=== PATIENT | male | born 1975 | race Caucasian/White ===

== ENCOUNTER 2020-04-16 12:24 | Emergency (ER) | payer OTHER ==
[2020-04-16 12:45] VITALS: BP 146/57; PULSE 86; RESP 18; TEMP 98.2
--- NOTE | 2020-04-16 12:56 | ED ---
General Adult HPI - General Chief complaint: Extremity Injury, Upper Stated complaint: L Hand Injury Time Seen by Provider: 04/16/20 12:40 Source: patient, RN notes reviewed, old records reviewed Mode of arrival: ambulatory Limitations: no limitations - History of Present Illness Initial comments: This is a 44-year-old male who comes in complaining of left fifth digit pain. Patient states he was carrying a sensation of safe caught between the safe in the wall. Patient states he can flex the but he has a difficult time fully extending the finger. Patient states the PIP joint is where it's very tender. Patient denies any other injury at this time. - Related Data Previous Rx's Medication Instructions Recorded Amoxicillin 500 mg PO Q8H #30 capsule 12/25/14 traMADol HCl [Ultram] 50 - 100 mg PO Q6H PRN #15 tab 12/25/14 Allergies Allergy/AdvReac Type Severity Reaction Status Date / Time No Known Allergies Allergy Verified 04/16/20 12:45 Review of Systems ROS Statement: Those systems with pertinent positive or pertinent negative responses have been documented in the HPI. ROS Other: All systems not noted in ROS Statement are negative. Past Medical History Past Medical History: No Reported History History of Any Multi-Drug Resistant Organisms: None Reported Past Surgical History: No Surgical Hx Reported Past Psychological History: No Psychological Hx Reported Smoking Status: Current every day smoker Past Alcohol Use History: None Reported Past Drug Use History: Marijuana General Exam - General Exam Comments Initial Comments: GENERAL Patient is well-developed and well-nourished. Patient is in mild distress. EYES Patient's pupils are equal and round. Extraocular motion is intact SKIN Unremarkable NEURO The patient is alert and oriented 3 PYSCH Patient has normal interpersonal interactions. MUSCULOSKELETAL Patient's PIP joint of the fifth left digit is very painful to touch and is somewhat swollen. Patient cannot fully extend the finger but he can flex it a little bit at each joint. Limitations: no limitations Course Vital Signs 04/16/20 12:41 Temperature 98.2 F Pulse Rate 86 Respiratory 18 Rate Blood Pressure 146/57 O2 Sat by Pulse 99 Oximetry Medical Decision Making - Medical Decision Making x-ray shows no acute fracture. Patient is having trouble extending the finger fully so we will be placed in a splint and full extension Disposition Clinical Impression: Strain of extensor muscle, fascia and tendon of finger, unspecified finger at forearm level, initial encounter Disposition: HOME SELF-CARE Condition: Good Is patient prescribed a controlled substance at d/c from ED?: No Referrals: Medardo Huang DO [Medical Doctor] - 1-2 days Time of Disposition: 13:25
--- NOTE | 2020-04-16 13:27 | XR ---
EXAMINATION TYPE: XR finger LT DATE OF EXAM: 04/16/2020 COMPARISON: NONE HISTORY: Pain TECHNIQUE: Three views are submitted. FINDINGS: The osseous structures are intact. The joint spaces are preserved and there is no acute fracture or dislocation. There is a chronic deformity head of the fifth metacarpal compatible with remote fractu re. There is a radiopaque density overlying the soft tissues in the subcutaneous region along the mar gin of the fifth metacarpal head which could represent a small foreign body. IMPRESSION: 1. No definite acute fracture or dislocation if symptoms persist, follow-up study in 7 to 10 days wo uld be suggested. 2. Chronic fracture fifth metacarpal with possible metallic foreign body adjacent to the head of the fifth metacarpal.
== END 2020-04-16 13:40 | disposition home or self-care (01) ==
LOC: EC 12:24
DX: S66.317A Strain of extensor muscle, fascia and tendon of left little finger at wrist and hand level, initial encounter (principal); W20.8XXA Other cause of strike by thrown, projected or falling object, initial encounter; Y92.009 Unspecified place in unspecified non-institutional (private) residence as the place of occurrence of the external cause
CPT/HCPCS: 99284

== ENCOUNTER → 2020-05-27 | Outpatient (CLI) | payer OTHER | END | disposition home or self-care (01) | LOC: LABWHC1 12:23 | PROVIDERS: ATTEND Orthopaedic Surgery | DX: E55.9 Vitamin D deficiency, unspecified (principal) | CPT/HCPCS: 36415; 82306 ==

== ENCOUNTER 2020-09-28 05:47 | Emergency (ER) | payer OTHER ==
[2020-09-28 05:56] VITALS: BP 137/86; PULSE 74; RESP 16; TEMP 98.4
[2020-09-28] MEDS ORDERED: LIDOCAINE 1% INJ 10MG/ML (20 ML MDV) SQ STA (06:41)
--- NOTE | 2020-09-28 06:45 | ED ---
General Adult HPI - General Chief complaint: Extremity Injury, Upper Stated complaint: [facility] Extremity Injury,Right Hand Time Seen by Provider: 09/28/20 06:20 Source: patient, RN notes reviewed Mode of arrival: ambulatory Limitations: no limitations - History of Present Illness Initial comments: Patient 45-year-old male presented to the emergency room today with a chief complaint of injury to left hand. He does admit that he was at work when a piece of metal fell on the back of the left hand. Patient does admit to a laceration. He states he put bandage on and was able to go back to work symptoms increased swelling was advised come here to the emergency room. Patient states tetanus is up-to-date. He denies any other complaints or any other symptoms. - Related Data Previous Rx's Medication Instructions Recorded Amoxicillin 500 mg PO Q8H #30 capsule 12/25/14 traMADol HCl [Ultram] 50 - 100 mg PO Q6H PRN #15 tab 12/25/14 Amoxic-Pot Clav 875-125Mg 1 tab PO Q12HR 1 Days #14 tab 09/28/20 [Augmentin 875-125] Allergies Allergy/AdvReac Type Severity Reaction Status Date / Time acetaminophen [From Lortab] AdvReac Hallucinati Verified 09/28/20 05:52 ons hydrocodone [From Lortab] AdvReac Hallucinati Verified 09/28/20 05:52 ons Review of Systems ROS Statement: Those systems with pertinent positive or pertinent negative responses have been documented in the HPI. ROS Other: All systems not noted in ROS Statement are negative. Past Medical History Past Medical History: No Reported History History of Any Multi-Drug Resistant Organisms: None Reported Past Surgical History: No Surgical Hx Reported Past Psychological History: No Psychological Hx Reported Smoking Status: Current every day smoker Past Alcohol Use History: None Reported Past Drug Use History: Marijuana General Exam - General Exam Comments Initial Comments: General: The patient is awake and alert, in no distress, and does not appear acutely ill. Neck: The neck is supple, there is no tenderness or JVD. Cardiovascular: There is a regular rate and rhythm. No murmur, rub or gallop is appreciated. Respiratory: Lungs are clear to auscultation, respirations are non-labored, breath sounds are equal. No wheezes, stridor, rales, or rhonchi. Musculoskeletal: Patient has full range of motion of his hand. Strength is 5/5 in all areas. Mild tenderness to the back of the left hand over the laceration site. There is mild swelling. No active bleeding. Laceration measures approximately a centimeter Neurological: A&O x 3. CN II-XII intact, There are no obvious motor or sensory deficits. Coordination appears grossly intact. Speech is normal. Skin: 1 cm laceration to the back of the left hand. Psychiatric: Normal mood and affect. Limitations: no limitations Course Vital Signs 09/28/20 05:53 Temperature 98.4 F Pulse Rate 74 Respiratory 16 Rate Blood Pressure 137/86 O2 Sat by Pulse 100 Oximetry Procedures - Procedures Initial comment: 1 cm linear laceration in the back of her left hand. The skin was anesthetized with 1% lidocaine. The laceration was then cleansed with Betadine and irrigated with normal saline. The wound was inspected, and there was no evidence of injury to deep structures. No foreign body was noted in the wound. A total of 2 skin sutures were placed utilizing 4-0 nylon. Medical Decision Making - Medical Decision Making X-ray was reviewed and shows no acute fracture dislocation. There is metallic foreign body that is visualized is not close to the laceration site tenderness over the back of the left hand over the third metacarpal area. The laceration was cleaned) emergency room he tolerated well. Tetanus is up-to-date. Patient will be started on antibiotics cover for infection from puncture type wound. Advised to follow with employee health return here to emergency room for any other concerns and have sutures removed in 7-10 days. Disposition Clinical Impression: Hand laceration Disposition: HOME SELF-CARE Condition: Good Additional Instructions: Please return to the emergency room in 7-10 days to have sutures removed. Please watch for any signs of infection which may include increased pain, swelling, redness, fever or chills. Please return to emergency room for any signs of infection do occur. Please use clean soap and water over the area to prevent scabbing over your stitches. Please leave wound covered for the first 24-48 hours and then leave wound open to air. Please return to the emergency room for any other concerns. Prescriptions: Amoxic-Pot Clav 875-125Mg [Augmentin 875-125] 1 tab PO Q12HR 1 Days #14 tab Is patient prescribed a controlled substance at d/c from ED?: No Referrals: None,Stated [Primary Care Provider] - 1-2 days Time of Disposition: 07:07
--- NOTE | 2020-09-28 06:59 | XR ---
EXAM: XR Left Hand Complete, 3 or More Views CLINICAL HISTORY: Reason: left hand injury TECHNIQUE: Frontal, lateral and oblique views of the left hand. COMPARISON: No relevant prior studies available. FINDINGS: Bones/joints: There is no evidence of acute fracture. Mild deformity of the distal fifth metacarpal may be associated with old, healed boxer's fracture. No subluxation. Joint spaces are preserved. Soft tissues: Mild soft tissue swelling seen along the dorsum of the hand. There is a 5 mm thin metallic density within the thenar space, possibly a broken needle tip. Additional 2 mm metallic density seen adjacent to the distal fifth metacarpal. IMPRESSION: No evidence of acute fracture or dislocation. Possible old healed distal fifth metacarpal fracture. 2 mm metallic radiopaque foreign body adjacent to the head of fifth metacarpal and 5 mm thin metallic density within the thenar space. Please correlate for injuries at these sites.
== END 2020-09-28 07:15 | disposition home or self-care (01) ==
LOC: EC 05:47
DX: S61.412A Laceration without foreign body of left hand, initial encounter (principal); F17.200 Nicotine dependence, unspecified, uncomplicated; Z88.5 Allergy status to narcotic agent; W20.8XXA Other cause of strike by thrown, projected or falling object, initial encounter; Y93.89 Activity, other specified; Y92.69 Other specified industrial and construction area as the place of occurrence of the external cause; Y99.0 Civilian activity done for income or pay
CPT/HCPCS: 73130; 12001; 99283; J2001

== ENCOUNTER 2020-12-20 13:01 | Emergency (ER) | payer OTHER ==
[2020-12-20 13:05] VITALS: RESP 18
[2020-12-20] MEDS ORDERED: LIDOCAINE VISCOUS 2% 15 ML CUP MUCOUS MEM STA (13:38)
[2020-12-20] MEDS ORDERED: PENICILLIN VK 500MG STARTER 4 TAB BTL PO STA (13:38)
--- NOTE | 2020-12-20 13:58 | ED ---
General Adult HPI - General Chief complaint: Dental/Oral Stated complaint: Dental Pain Time Seen by Provider: 12/20/20 13:15 Source: patient Mode of arrival: ambulatory Limitations: no limitations - History of Present Illness Initial comments: 45-year-old male presents for dental pain. Patient reports that he started to have left lower mouth dental pain yesterday. States he went to go get Orajel and it burned his tongue. It hurts all around his tongue. Patient denies any swelling of his lips or throat. Denies any swelling of the tongue.Patient has no other complaints at this time including shortness of breath, chest pain, abdominal pain, nausea or vomiting, headache, or visual changes. - Related Data Previous Rx's Medication Instructions Recorded Amoxicillin 500 mg PO Q8H #30 capsule 12/25/14 traMADol HCl [Ultram] 50 - 100 mg PO Q6H PRN #15 tab 12/25/14 Amoxic-Pot Clav 875-125Mg 1 tab PO Q12HR 1 Days #14 tab 09/28/20 [Augmentin 875-125] Penicillin V Potassium [Pen Vee K] 500 mg PO Q6H 10 Days #40 tablet 12/20/20 Allergies Allergy/AdvReac Type Severity Reaction Status Date / Time acetaminophen [From Lortab] AdvReac Hallucinati Verified 12/20/20 13:02 ons hydrocodone [From Lortab] AdvReac Hallucinati Verified 12/20/20 13:02 ons Review of Systems ROS Statement: Those systems with pertinent positive or pertinent negative responses have been documented in the HPI. ROS Other: All systems not noted in ROS Statement are negative. Past Medical History Past Medical History: No Reported History History of Any Multi-Drug Resistant Organisms: None Reported Past Surgical History: No Surgical Hx Reported Past Psychological History: No Psychological Hx Reported Smoking Status: Current every day smoker Past Alcohol Use History: None Reported Past Drug Use History: Marijuana General Exam Limitations: no limitations General appearance: alert, in no apparent distress Head exam: Present: atraumatic, normocephalic, normal inspection Eye exam: Present: normal appearance, PERRL, EOMI. Absent: scleral icterus, conjunctival injection, periorbital swelling ENT exam: Present: normal exam, mucous membranes moist. Absent: normal oropharynx (Patient has very poor dentition. Tenderness to left lower molar. No abscess evident. Patient does have irritation noted to the lateral aspect of the tongue bilaterally. There is no edema.) Neck exam: Present: normal inspection. Absent: tenderness, meningismus, l ymphadenopathy Respiratory exam: Present: normal lung sounds bilaterally. Absent: respiratory distress, wheezes, rales, rhonchi, stridor Cardiovascular Exam: Present: regular rate, normal rhythm, normal heart sounds. Absent: systolic murmur, diastolic murmur, rubs, gallop, clicks Course Vital Signs 12/20/20 13:02 Temperature 97.4 F L Pulse Rate 55 L Respiratory 18 Rate Blood Pressure 151/95 O2 Sat by Pulse 99 Oximetry Medical Decision Making - Medical Decision Making Patient was given penicillin. Will give him some viscous lidocaine here. We recommend he follows up with his doctor. If he has any worsening symptoms he will return to the emergency room. Disposition Clinical Impression: Pain, dental Disposition: HOME SELF-CARE Condition: Good Instructions (If sedation given, give patient instructions): Toothache (ED) Additional Instructions: Please take antibiotic as directed. Please follow-up with dentist. Take Motrin and Tylenol for pain. Return if you've any worsening symptoms. [facility] [address] [id number] (existing clients only) New clients: [phone] 1st consult: $50 (includes XRs) Usually 30% less than private dentist for visits after. [employer] Have to pay $50 for Xrays and rest is covered [phone] Prescriptions: Penicillin V Potassium [Pen Vee K] 500 mg PO Q6H 10 Days #40 tablet Is patient prescribed a controlled substance at d/c from ED?: No Referrals: Paolo Ruffin DO [REFERRING] - 1-2 days Time of Disposition: 13:57
[2020-12-20 14:04] VITALS: BP 129/86; PULSE 87; TEMP 98.4
== END 2020-12-20 14:02 | disposition home or self-care (01) ==
LOC: EC 13:01
DX: F17.200 Nicotine dependence, unspecified, uncomplicated (principal); K08.89 Other specified disorders of teeth and supporting structures
CPT/HCPCS: 99283

== ENCOUNTER 2021-03-21 22:16 | Emergency (ER) | payer OTHER ==
[2021-03-21 22:24] VITALS: BP 145/83; PULSE 62; RESP 20; TEMP 97.8
[2021-03-21] MEDS ORDERED: methylPREDNISolone SOD SUCCI 125 MG/2 ML VIAL IM ONE (23:01)
--- NOTE | 2021-03-21 23:28 | ED ---
General Adult HPI - General Chief complaint: Eye Problems Stated complaint: foreign body in right eye Time Seen by Provider: 03/21/21 22:47 Source: patient Mode of arrival: ambulatory Limitations: no limitations - History of Present Illness Initial comments: patient is a 45-year-old male presenting to the emergency department with a bee sting to the right upper eyelid. Patient states this happened approximately 3 hours prior to arrival. He states he does have an ALLERGY to bees. He did take a total of 100 mg of Benadryl prior to arrival. He states she's been using ice to the area and was concerned that the stinger may be still in his eye. He denies any trouble breathing, no chest pain, no itchiness, no hives. Denies any nausea or vomiting. He denies ever having an anaphylactic reaction to a bee sting. He has no further complaints at this time. His vitals are stable upon arrival. - Related Data Home Medications Medication Instructions Recorded Confirmed diphenhydrAMINE HCL [Benadryl] 100 mg PO ONCE PRN 03/21/21 03/21/21 Previous Rx's Medication Instructions Recorded predniSONE 50 mg PO DAILY #5 tab 03/21/21 Allergies Allergy/AdvReac Type Severity Reaction Status Date / Time bee venom protein (honey bee) Allergy Swelling Verified 03/21/21 23:06 hydrocodone [From Lortab] AdvReac Hallucinati Verified 03/21/21 23:06 ons Review of Systems ROS Statement: Those systems with pertinent positive or pertinent negative responses have been documented in the HPI. ROS Other: All systems not noted in ROS Statement are negative. Past Medical History Past Medical History: No Reported History History of Any Multi-Drug Resistant Organisms: None Reported Past Surgical History: No Surgical Hx Reported Past Psychological History: No Psychological Hx Reported Smoking Status: Current every day smoker Past Alcohol Use History: None Reported Past Drug Use History: Marijuana General Exam - General Exam Comments Initial Comments: GENERAL: Patient is well-developed and well-nourished. Patient is nontoxic and in no acute distress. HEAD: Atraumatic, normocephalic. EYES: Pupils equal round and reactive to light, extraocular movements intact, sclera anicteric, conjunctiva are normal. Right eyelid is swollen, erythematous, no stinger is visable. ENT: TMs normal, nares patent, oropharynx clear without exudates. Moist mucous membranes. NECK: Normal range of motion, supple without lymphadenopathy or JVD. LUNGS: Unlabored respirations. Breath sounds clear to auscultation bilaterally and equal. No wheezes rales or rhonchi. HEART: Regular rate and rhythm without murmurs, rubs or gallops. ABDOMEN: Soft, nontender, normoactive bowel sounds. No guarding, no rebound. No masses appreciated. : Deferred MUSCULOSKELETAL: Normal extremities with adequate strength and normal range of motion, no pitting or edema. No clubbing or cyanosis. NEUROLOGICAL: Patient is alert and oriented x 3. SKIN: Warm, Dry, normal turgor, no rashes or lesions noted. Limitations: no limitations Course Vital Signs 03/21/21 22:20 Temperature 97.8 F Pulse Rate 62 Respiratory 20 Rate Blood Pressure 145/83 O2 Sat by Pulse 99 Oximetry Medical Decision Making - Medical Decision Making patient is a 45-year-old male here with a bee sting to the right eyelid happened 3 hours prior to arrival. He does have an ALLERGY to bees. He has no other complaints, no shortness of breath, no rashes or nausea. He was given a shot of steroids today. I will give him a prescription to continue her steroids over the next few days. He can continue with Benadryl as needed as well. Recommended ice packs to the eye. He'll follow up with his primary care. He is requesting a work note. He is stable for discharge. Case discussed with Dr. Katz. Disposition Clinical Impression: Bee sting reaction Disposition: HOME SELF-CARE Condition: Stable Instructions (If sedation given, give patient instructions): Insect Bite or Sting (ED) Additional Instructions: Please return to the Emergency Department if symptoms worsen or any other concerns. Take steroids as prescribed starting tomorrow. Apply ice to the eye. May take Benadryl, 50mg, as needed every 8 hours. Prescriptions: predniSONE 50 mg PO DAILY #5 tab Is patient prescribed a controlled substance at d/c from ED?: No Referrals: None,Stated [Primary Care Provider] - 1-2 days Time of Disposition: 23:27
== END 2021-03-21 23:40 | disposition home or self-care (01) ==
LOC: EC 22:16
DX: T63.441A Toxic effect of venom of bees, accidental (unintentional), initial encounter (principal); F17.200 Nicotine dependence, unspecified, uncomplicated; F12.90 Cannabis use, unspecified, uncomplicated
CPT/HCPCS: 99282; 96372; J2930

== ENCOUNTER 2021-03-22 13:28 | Emergency (ER) | payer OTHER ==
--- NOTE | 2021-03-22 14:04 | ED ---
General Adult HPI - General Chief complaint: Recheck/Abnormal Lab/Rx Stated complaint: Bee sting R eye Time Seen by Provider: 03/22/21 14:03 Source: patient, RN notes reviewed Mode of arrival: ambulatory Limitations: no limitations - History of Present Illness Initial comments: 45-year-old male presents emergency Department chief complaint of bee sting. He was seen here yesterday after stung by a bee in his right eyelid. Patient states he noticed swelling today denies any difficulty breathing or difficulty swallowing. Patient did take some Benadryl he was given steroids has not completed those today. Patient denies any other complaints. - Related Data Home Medications Medication Instructions Recorded Confirmed diphenhydrAMINE HCL [Benadryl] 100 mg PO ONCE PRN 03/21/21 03/21/21 Previous Rx's Medication Instructions Recorded predniSONE 50 mg PO DAILY #5 tab 03/21/21 Allergies Allergy/AdvReac Type Severity Reaction Status Date / Time bee venom protein (honey bee) Allergy Swelling Verified 03/22/21 14:00 hydrocodone [From Lortab] AdvReac Hallucinati Verified 03/22/21 14:00 ons Review of Systems ROS Statement: Those systems with pertinent positive or pertinent negative responses have been documented in the HPI. ROS Other: All systems not noted in ROS Statement are negative. Past Medical History Past Medical History: No Reported History History of Any Multi-Drug Resistant Organisms: None Reported Past Surgical History: No Surgical Hx Reported Past Psychological History: No Psychological Hx Reported Smoking Status: Current every day smoker Past Alcohol Use History: None Reported Past Drug Use History: Marijuana General Exam Limitations: no limitations General appearance: alert, in no apparent distress Head exam: Present: atraumatic, normocephalic, normal inspection Eye exam: Present: normal appearance, PERRL, EOMI, periorbital swelling (Mild right upper eyelid swelling). Absent: scleral icterus, conjunctival injection, periorbital tenderness ENT exam: Present: normal exam, mucous membranes moist Neck exam: Present: normal inspection, full ROM. Absent: tenderness, meningismus, lymphadenopathy Respiratory exam: Present: normal lung sounds bilaterally. Absent: respiratory distress, wheezes, rales, rhonchi, stridor Cardiovascular Exam: Present: regular rate, normal rhythm, normal heart sounds. Absent: systolic murmur, diastolic murmur, rubs, gallop, clicks Course Vital Signs 03/22/21 13:57 Temperature 98.4 F Pulse Rate 88 Respiratory 17 Rate Blood Pressure 112/73 O2 Sat by Pulse 98 Oximetry Medical Decision Making - Medical Decision Making Patient has evidence of mild reaction the right eyelid no systemic symptoms will be discharged in stable condition. Disposition Clinical Impression: Bee sting reaction Disposition: HOME SELF-CARE Condition: Stable Instructions (If sedation given, give patient instructions): Insect Bite or Sting (ED) Additional Instructions: Please return to the Emergency Department if symptoms worsen or any other concerns. Is patient prescribed a controlled substance at d/c from ED?: No Referrals: None,Stated [Primary Care Provider] - 1-2 days Time of Disposition: 14:04
[2021-03-22 14:15] VITALS: BP 107/71; PULSE 73; RESP 18; TEMP 98
== END 2021-03-22 14:16 | disposition home or self-care (01) ==
LOC: EC 13:28
DX: T63.441A Toxic effect of venom of bees, accidental (unintentional), initial encounter (principal); F17.200 Nicotine dependence, unspecified, uncomplicated; F12.90 Cannabis use, unspecified, uncomplicated
CPT/HCPCS: 99282

== ENCOUNTER 2022-01-09 02:13 | Emergency (ER) | payer OTHER ==
--- NOTE | 2022-01-09 02:44 | ED ---
Eye Problem HPI - General Chief complaint: Eye Problems Stated complaint: eye problems Time Seen by Provider: 01/09/22 02:43 Source: patient, RN notes reviewed, old records reviewed Mode of arrival: ambulatory Limitations: no limitations - History of Present Illness Initial comments: This is a 46-year-old male to the ER for evaluation of possible eye foreign body. Patient states he has history of same With metal and metal shavings. Patient does wear protective lenses. Patient has no vision changes just had persistent pain throughout the night was unable to sleep tonight. 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 Eye Symptoms: redness, pain, discharge, blurry vision Severity: moderate Severity scale (1-10): 4 If Pain, Quality: sharp, burning Consistency: constant Associated Symptoms: none Treatments Prior to Arrival: none - Related Data Home Medications Medication Instructions Recorded Confirmed diphenhydrAMINE HCL [Benadryl] 100 mg PO ONCE PRN 03/21/21 03/21/21 Previous Rx's Medication Instructions Recorded predniSONE 50 mg PO DAILY #5 tab 03/21/21 Allergies Allergy/AdvReac Type Severity Reaction Status Date / Time bee venom protein (honey bee) Allergy Swelling Verified 01/09/22 02:28 hydrocodone [From Lortab] AdvReac Hallucinati Verified 01/09/22 02:28 ons Review of Systems ROS Statement: Those systems with pertinent positive or pertinent negative responses have been documented in the HPI. ROS Other: All systems not noted in ROS Statement are negative. Past Medical History Past Medical History: No Reported History History of Any Multi-Drug Resistant Organisms: None Reported Past Surgical History: No Surgical Hx Reported Past Psychological History: No Psychological Hx Reported Smoking Status: Current every day smoker Past Alcohol Use History: None Reported Past Drug Use History: Marijuana General Exam - General Exam Comments Initial Comments: Tetracaine exam provides relief No foreign body noted on exam mild corneal abrasions No vision changes or vision loss General appearance: alert, in no apparent distress Head exam: Present: atraumatic, normocephalic, normal inspection Eye exam: Present: normal appearance, PERRL, EOMI. Absent: scleral icterus, conjunctival injection, periorbital swelling ENT exam: Present: normal exam, mucous membranes moist Neck exam: Present: normal inspection. Absent: tenderness, meningismus, lymphadenopathy Respiratory exam: Present: normal lung sounds bilaterally. Absent: respiratory distress, wheezes, rales, rhonchi, stridor Cardiovascular Exam: Present: regular rate, normal rhythm, normal heart sounds. Absent: systolic murmur, diastolic murmur, rubs, gallop, clicks GI/Abdominal exam: Present: soft, normal bowel sounds. Absent: distended, tenderness, guarding, rebound, rigid Extremities exam: Present: normal inspection, full ROM, normal capillary refill. Absent: tenderness, pedal edema, joint swelling, calf tenderness Back exam: Present: normal inspection Neurological exam: Present: alert, oriented X3, CN II-XII intact Psychiatric exam: Present: normal affect, normal mood Skin exam: Present: warm, dry, intact, normal color. Absent: rash Course Vital Signs 01/09/22 01/09/22 02:24 03:21 Temperature 98.1 F 98 F Pulse Rate 71 90 Respiratory 18 20 Rate Blood Pressure 131/70 139/86 O2 Sat by Pulse 98 97 Oximetry - Reevaluation(s) Reevaluation #1: 01/09/22 Medical record is reviewed Reevaluation #2: 01/09/22 Patient given pain control, bilateral Lizandro lenses with irrigation Reevaluation #3: 01/09/22 Patient informed of results and questions answered Medical Decision Making - Medical Decision Making 46 male to the emergency department with likely eye foreign body. Bilateral eyes irrigated significantly patient given antibiotics follow-up with ophthalmology or return to ER if symptoms don't improve in 2 days Disposition Clinical Impression: Foreign body of cornea, Bilateral conjunctivitis Disposition: HOME SELF-CARE Condition: Good Instructions (If sedation given, give patient instructions): Eye Foreign Body (ED), Conjunctivitis (ED) Is patient prescribed a controlled substance at d/c from ED?: No Referrals: None,Stated [Primary Care Provider] - 1-2 days Time of Disposition: 03:15
[2022-01-09] MEDS ORDERED: POLYMYXIN B-TRIMETHOPRIM SULF (10,000-1) OPHTH DROPS 10 ML BTL BOTH EYES STA (03:06)
[2022-01-09 03:23] VITALS: BP 139/86; PULSE 90; RESP 20; TEMP 98
== END 2022-01-09 03:24 | disposition home or self-care (01) ==
LOC: EC 02:13
DX: T15.02XA Foreign body in cornea, left eye, initial encounter (principal); T15.01XA Foreign body in cornea, right eye, initial encounter; H10.9 Unspecified conjunctivitis; F17.200 Nicotine dependence, unspecified, uncomplicated; Z88.5 Allergy status to narcotic agent; Z91.030 Bee allergy status; W45.8XXA Other foreign body or object entering through skin, initial encounter
CPT/HCPCS: 99282

== ENCOUNTER 2022-02-24 02:37 | Emergency (ER) | payer OTHER ==
[2022-02-24 02:59] VITALS: BP 141/88; PULSE 56; RESP 16; TEMP 98.1
[2022-02-24] MEDS ORDERED: IBUPROFEN 400 MG TAB PO STA (03:46)
[2022-02-24] MEDS ORDERED: Acetaminophen-Codeine 300-30mg TAB PO STA (03:47)
[2022-02-24] MEDS ORDERED: CLINDAMYCIN 150 MG CAP PO STA (03:47)
--- NOTE | 2022-02-24 04:39 | ED ---
ENT HPI - General Chief complaint: Dental/Oral Stated complaint: Abscess tooth Time Seen by Provider: 02/24/22 03:24 Source: patient Mode of arrival: ambulatory Limitations: no limitations - History of Present Illness Initial comments: This patient is a 46-year-old man who presents with complaint of right maxillary dental pain. He has had days of pain, he did go and see his dentist and was started on amoxicillin. He has taken a full day of amoxicillin without much relief. Patient also reports some swelling to the lip above the tooth. He has not have systemic symptoms, no fever or chills. No chest pain, palpitations, dyspnea. The patient does not have any eye pain. No problem with extraocular movements. MD complaint: tooth pain -: days(s) (6) Severity: severe Quality: aching Consistency: constant Improves with: none Worsens with: none Context- Dental: history of dental caries Associated Symptoms: toothache - Related Data Home Medications Medication Instructions Recorded Confirmed diphenhydrAMINE HCL [Benadryl] 100 mg PO ONCE PRN 03/21/21 03/21/21 Previous Rx's Medication Instructions Recorded predniSONE 50 mg PO DAILY #5 tab 03/21/21 Acetaminophen-Codeine 300-30mg 1 tab PO Q4H PRN #20 tablet 02/24/22 [Tylenol w/codeine #3] Clindamycin [Cleocin] 150 mg PO Q6H #28 capsule 02/24/22 Allergies Allergy/AdvReac Type Severity Reaction Status Date / Time bee venom protein (honey bee) Allergy Swelling Verified 03/02/22 20:56 acetaminophen [From Vicodin] AdvReac Hallucinati Verified 03/02/22 20:56 ons hydrocodone [From Lortab] AdvReac Hallucinati Verified 03/02/22 20:56 ons Review of Systems ROS Statement: Those systems with pertinent positive or pertinent negative responses have been documented in the HPI. ROS Other: All systems not noted in ROS Statement are negative. Constitutional: Denies: fever, chills Eyes: Denies: eye pain, eye discharge, vision change ENT: Reports: dental pain. Denies: congestion Respiratory: Denies: dyspnea Cardiovascular: Denies: chest pain, palpitations Skin: Denies: rash Neurological: Denies: headache Past Medical History Past Medical History: No Reported History History of Any Multi-Drug Resistant Organisms: None Reported Past Surgical History: No Surgical Hx Reported Past Psychological History: No Psychological Hx Reported Smoking Status: Current every day smoker Past Alcohol Use History: None Reported Past Drug Use History: Marijuana General Exam Limitations: no limitations General appearance: alert, in no apparent distress Head exam: Present: atraumatic, normocephalic Eye exam: Present: normal appearance, PERRL, EOMI. Absent: scleral icterus, conjunctival injection, nystagmus, periorbital swelling, periorbital tenderness ENT exam: Present: mucous membranes moist, other (Patient has extensive dental caries. There is no palpable abscess. There is a small amount of swelling of the soft tissue of the upper lip. No evidence of spread to the orbit or maxilla) Neck exam: Present: normal inspection, full ROM. Absent: tenderness, meningismus, lymphadenopathy Respiratory exam: Present: normal lung sounds bilaterally Cardiovascular Exam: Present: regular rate, normal rhythm, normal heart sounds Skin exam: Present: warm, dry, intact, normal color. Absent: rash Course Vital Signs 02/24/22 02:54 Temperature 98.1 F Pulse Rate 56 L Respiratory 16 Rate Blood Pressure 141/88 O2 Sat by Pulse 99 Oximetry Medical Decision Making - Medical Decision Making Patient is 46-year-old man with right maxillary dental pain. He is given additional medication here and is starting to have decent analgesia. Given that he feels he is worsening, will provide clindamycin for additional bacterial coverage and have close follow-up. Discussed appropriate return parameters. Disposition Clinical Impression: Toothache Disposition: HOME SELF-CARE Condition: Good Instructions (If sedation given, give patient instructions): Toothache (ED) Prescriptions: Clindamycin [Cleocin] 150 mg PO Q6H #28 capsule Acetaminophen-Codeine 300-30mg [Tylenol w/codeine #3] 1 tab PO Q4H PRN #20 tablet PRN Reason: Pain Is patient prescribed a controlled substance at d/c from ED?: Yes Referrals: Charles Alvarez MD [Primary Care Provider] - 1-2 days
== END 2022-02-24 04:53 | disposition home or self-care (01) ==
LOC: EC 02:37
DX: K02.9 Dental caries, unspecified (principal); F17.200 Nicotine dependence, unspecified, uncomplicated; Z88.6 Allergy status to analgesic agent; Z88.5 Allergy status to narcotic agent; Z91.030 Bee allergy status
CPT/HCPCS: 99282

== ENCOUNTER 2022-02-28 04:27 | Emergency (ER) | payer OTHER ==
[2022-02-28 04:36] VITALS: TEMP 98.5
[2022-02-28] MEDS ORDERED: AMOXIC-POT CLAV 875MG STARTER PACK 2 TAB BTL PO STA (05:55)
[2022-02-28] MEDS ORDERED: AMOXIC-POT CLAV 875-125MG 1 EACH TAB PO STA (05:55)
[2022-02-28] MEDS ORDERED: ACET/COD 300 MG/30 MG STARTER PACK 6 TAB BTL PO STA (05:55)
[2022-02-28] MEDS: traMADol 50 MG TAB PO STA ×2 (05:56→06:07)
[2022-02-28] MEDS ORDERED: traMADol 50 MG STARTER PACK 3 TAB BTL PO STA (05:56)
--- NOTE | 2022-02-28 05:57 | ED ---
ENT HPI - General Chief complaint: Dental/Oral Stated complaint: dental pain Time Seen by Provider: 02/28/22 04:29 Source: patient, RN notes reviewed, old records reviewed Mode of arrival: ambulatory Limitations: no limitations - History of Present Illness Initial comments: This is a 46-year-old male to the emergency department for evaluation patient franki lion presents for evaluation of pain severe dental pain, history of cavities and tooth painful the past. No trauma, no recent broken tooth, no recent swelling is able to eat and drink. MD complaint: tooth pain -: days(s) Location: tooth # Severity: severe Severity scale (1-10): 10 Quality: stabbing Consistency: intermittent Improves with: none Worsens with: none Context- Dental: history of dental caries Associated Symptoms: gum swelling, toothache - Related Data Home Medications Medication Instructions Recorded Confirmed diphenhydrAMINE HCL [Benadryl] 100 mg PO ONCE PRN 03/21/21 03/21/21 Previous Rx's Medication Instructions Recorded predniSONE 50 mg PO DAILY #5 tab 03/21/21 Acetaminophen-Codeine 300-30mg 1 tab PO Q4H PRN #20 tablet 02/24/22 [Tylenol w/codeine #3] Clindamycin [Cleocin] 150 mg PO Q6H #28 capsule 02/24/22 Allergies Allergy/AdvReac Type Severity Reaction Status Date / Time bee venom protein (honey bee) Allergy Swelling Verified 03/02/22 20:56 acetaminophen [From Vicodin] AdvReac Hallucinati Verified 03/02/22 20:56 ons hydrocodone [From Lortab] AdvReac Hallucinati Verified 03/02/22 20:56 ons Review of Systems ROS Statement: Those systems with pertinent positive or pertinent negative responses have been documented in the HPI. ROS Other: All systems not noted in ROS Statement are negative. Past Medical History Past Medical History: No Reported History History of Any Multi-Drug Resistant Organisms: None Reported Past Surgical History: No Surgical Hx Reported Past Psychological History: No Psychological Hx Reported Smoking Status: Current every day smoker Past Alcohol Use History: None Reported Past Drug Use History: Marijuana General Exam General appearance: alert, in no apparent distress Head exam: Present: atraumatic, normocephalic, normal inspection Eye exam: Present: normal appearance, PERRL, EOMI. Absent: scleral icterus, conjunctival injection, periorbital swelling ENT exam: Absent: normal oropharynx (Severe dental caries and pain to touch) Neck exam: Present: normal inspection. Absent: tenderness, meningismus, lymphadenopathy Respiratory exam: Present: normal lung sounds bilaterally. Absent: respiratory distress, wheezes, rales, rhonchi, stridor Cardiovascular Exam: Present: regular rate, normal rhythm, normal heart sounds. Absent: systolic murmur, diastolic murmur, rubs, gallop, clicks GI/Abdominal exam: Present: soft, normal bowel sounds. Absent: distended, tenderness, guarding, rebound, rigid Extremities exam: Present: normal inspection, full ROM, normal capillary refill. Absent: tenderness, pedal edema, joint swelling, calf tenderness Back exam: Present: normal inspection Neurological exam: Present: alert, oriented X3, CN II-XII intact Psychiatric exam: Present: normal affect, normal mood Skin exam: Present: warm, dry, intact, normal color. Absent: rash Course Vital Signs 02/28/22 02/28/22 04:32 06:11 Temperature 98.5 F Pulse Rate 77 72 Respiratory 19 18 Rate Blood Pressure 145/83 139/87 O2 Sat by Pulse 97 98 Oximetry - Reevaluation(s) Reevaluation #1: 02/28/22 Medical record is reviewed Reevaluation #2: 02/28/22 Patient symptoms are improved Reevaluation #3: 02/28/22 Patient informed of results and questions answered Medical Decision Making - Medical Decision Making 46 male presents today for evaluation regarding dental pain and dental caries. Patient started on a medication antibiotics and can be discharged home Disposition Clinical Impression: Toothache, Dental caries, Dental abscess Disposition: HOME SELF-CARE Condition: Good Instructions (If sedation given, give patient instructions): Dental Abscess (ED) Is patient prescribed a controlled substance at d/c from ED?: No Referrals: Charles Alvarez MD [Primary Care Provider] - 1-2 days Time of Disposition: 06:00
[2022-02-28 06:12] VITALS: BP 139/87; PULSE 72; RESP 18
== END 2022-02-28 06:12 | disposition home or self-care (01) ==
LOC: EC 04:27
DX: K04.7 Periapical abscess without sinus (principal); K02.9 Dental caries, unspecified; F17.200 Nicotine dependence, unspecified, uncomplicated; Z91.030 Bee allergy status; Z88.8 Allergy status to other drugs, medicaments and biological substances
CPT/HCPCS: 99282

== ENCOUNTER 2022-03-02 20:48 | Emergency (ER) | payer OTHER ==
[2022-03-02 20:56] VITALS: BP 172/90; PULSE 73; RESP 22; TEMP 98.5
[2022-03-02] MEDS ORDERED: DIPH,PERTUS(ACELL)TETVAC-LF 0.5 ML VIAL IM ONE (21:40)
[2022-03-02] MEDS ORDERED: LIDOCAINE 1% INJ 10MG/ML (5 ML VIAL-PF) SQ ONE (21:44)
[2022-03-02] MEDS ORDERED: TOPICAL SKIN ADHESIVE 1 EACH AMP TOPICAL ONE (21:44)
--- NOTE | 2022-03-02 21:51 | ED ---
Wound/Laceration HPI - General Chief Complaint: Wound/Laceration Stated Complaint: Work comp injury laceration Time Seen by Provider: 03/02/22 21:40 Source: patient, RN notes reviewed, old records reviewed Mode of arrival: ambulatory Limitations: no limitations - History of Present Illness Initial Comments: Well-appearing 46-year-old male presents to the emergency room with laceration to his left index finger just below the nail and palm just below the little finger on a piece of sharp metal at work today. He denies any other injury. Full range of motion. -: minutes(s) (90) Extremity Location: Left: Hand (index and palm) Place: work Patient Tetanus UTD: No Context: accidental, other (metal) Associated Symptoms: none - Related Data Home Medications Medication Instructions Recorded Confirmed diphenhydrAMINE HCL [Benadryl] 100 mg PO ONCE PRN 03/21/21 03/21/21 Previous Rx's Medication Instructions Recorded predniSONE 50 mg PO DAILY #5 tab 03/21/21 Acetaminophen-Codeine 300-30mg 1 tab PO Q4H PRN #20 tablet 02/24/22 [Tylenol w/codeine #3] Clindamycin [Cleocin] 150 mg PO Q6H #28 capsule 02/24/22 Allergies Allergy/AdvReac Type Severity Reaction Status Date / Time bee venom protein (honey bee) Allergy Swelling Verified 03/02/22 20:56 acetaminophen [From Vicodin] AdvReac Hallucinati Verified 03/02/22 20:56 ons hydrocodone [From Lortab] AdvReac Hallucinati Verified 03/02/22 20:56 ons Review of Systems ROS Statement: Those systems with pertinent positive or pertinent negative responses have been documented in the HPI. ROS Other: All systems not noted in ROS Statement are negative. Past Medical History Past Medical History: No Reported History History of Any Multi-Drug Resistant Organisms: None Reported Past Surgical History: No Surgical Hx Reported Past Psychological History: No Psychological Hx Reported Smoking Status: Current every day smoker Past Alcohol Use History: None Reported Past Drug Use History: Marijuana General Exam Limitations: no limitations General appearance: alert, in no apparent distress Head exam: Present: atraumatic Eye exam: Present: normal appearance. Absent: scleral icterus, conjunctival injection, periorbital swelling Respiratory exam: Absent: respiratory distress, accessory muscle use Cardiovascular Exam: Present: regular rate Extremities exam: Present: full ROM, normal capillary refill. Absent: tenderness Neurological exam: Present: alert, oriented X3 Psychiatric exam: Present: normal affect, normal mood Skin exam: Present: warm, dry, normal color, other (Flap avulsion approx 1cm of skin to left index finger just below the nail no active bleeding; approximately 1 cm laceration palmar surface just below the fifth digit). Absent: cyanosis, diaphoretic, petechiae, pallor Course Vital Signs 03/02/22 20:52 Temperature 98.5 F Pulse Rate 73 Respiratory 22 Rate Blood Pressure 172/90 O2 Sat by Pulse 98 Oximetry Procedures - Laceration Laceration #1 Consent Obtained: verbal consent Indication: laceration Site: hand Description: linear Depth: simple, single layer Anesthetic Used: lidocaine 1% Anesthesia Technique: local infiltration Pre-repair: irrigated extensively Type of Sutures: nylon Size of Sutures: 5-0 Number of Sutures: 2 Technique: simple, interrupted Patient Tolerated Procedure: well, no complications Medical Decision Making - Medical Decision Making Patient presents with a flap avulsion to left index finger just below nail and 1 cm laceration below palmar crease fifth digit. He has full range of motion. His tetanus shot was updated at this visit. Wounds were soaked and cleansed, exofin glue applied to finger avulsion. 2 sutures placed in hand laceration. Patient instructed to follow-up with his primary care doctor sutures to be removed in 7-10 days return with any new or concerning symptoms including signs of infection. Case discussed with Dr. Broussard. Disposition Clinical Impression: Laceration Disposition: HOME SELF-CARE Condition: Good Instructions (If sedation given, give patient instructions): Laceration (ED), Skin Adhesive Care (ED) Additional Instructions: Keep wounds clean and dry. Sutures to be removed in 7-10 days. Allow the glue to flake off on its own. Do not put any ointments or lotions on glue. Return to the emergency room with any new or concerning symptoms including signs of infection. Is patient prescribed a controlled substance at d/c from ED?: No Referrals: Charles Alvarez MD [Primary Care Provider] - 1-2 days Time of Disposition: 22:09
[2022-03-02] MEDS ORDERED: BACITRACIN OINT 1 EACH PACKET TOPICAL ONE (22:07)
== END 2022-03-02 22:29 | disposition home or self-care (01) ==
LOC: EC 20:48
DX: S61.412A Laceration without foreign body of left hand, initial encounter (principal); S61.211A Laceration without foreign body of left index finger without damage to nail, initial encounter; F17.200 Nicotine dependence, unspecified, uncomplicated; Z23 Encounter for immunization; Z91.030 Bee allergy status; Z88.6 Allergy status to analgesic agent; Z88.5 Allergy status to narcotic agent; W26.8XXA Contact with other sharp object(s), not elsewhere classified, initial encounter; Y99.0 Civilian activity done for income or pay
CPT/HCPCS: 90715; 99282; 12001; 90471; J2001

== ENCOUNTER → 2025-01-16 | Outpatient (CLI) | payer OTHER ==
[2025-01-16 19:27] LABS: Basophils # (A) 0.07 X 10*3/uL (0.00-0.10); Basophils % (A) 1.1 %; Eosinophils # (A) 0.22 X 10*3/uL (0.04-0.35); Eosinophils % (A) 3.5 %; HCT 49.1 % (39.6-50.0); HGB 16.2 g/dL (13.0-17.0); Lymphocytes # (A) 1.75 X 10*3/uL (0.90-5.00); Lymphocytes % (A) 27.5 %; MCV 90.9 FL (80.0-97.0); Mean Platelet Volume 10.7 FL (9.5-12.2); Monocytes # (A) 0.58 X 10*3/uL (0.20-1.00); Monocytes % (A) 9.1 %; NRBC Per 100 WBC 0 X 10*3/uL (0.00-0.01); Neutrophils # (A) 3.72 X 10*3/uL (1.80-7.70); Neutrophils % (A) 58.5 %; Platelet Count 254 X 10*3/uL (140-440); RDW 13.2 % (11.5-14.5); WBC 6.36 X 10*3/uL (4.50-10.00)
[2025-01-16 19:43] LABS: ALT 15 U/L (10-49); AST 24 U/L (14-35); Albumin 4.6 g/dL (3.8-4.9); Albumin/Globulin Ratio 2.42 Ratio (1.60-3.17); Alkaline Phosphatase 64 U/L (41-126); Amylase 30 U/L (23-121); Calcium 9.4 mg/dL (8.7-10.3); Carbon Dioxide 29.9 mmol/L (21.6-31.8); Chloride 100 mmol/L (96-109); Globulin 1.9 g/dL (1.6-3.3); Glucose 97 mg/dL (70-110); Lipase 24 U/L (14-60); Potassium 4.1 mmol/L (3.5-5.5); Sodium 139 mmol/L (135-145); Total Bilirubin 0.6 mg/dL (0.3-1.2); Total Protein 6.5 g/dL (6.2-8.2)
== END | disposition home or self-care (01) ==
LOC: LABWHC1 16:25
PROVIDERS: ATTEND Family Medicine
DX: R10.13 Epigastric pain (principal); R19.7 Diarrhea, unspecified
CPT/HCPCS: 36415; 80053; 82150; 83690; 85025

== ENCOUNTER → 2025-01-19 | Outpatient (CLI) | payer OTHER | END | disposition home or self-care (01) | LOC: LABPRL 21:00 | PROVIDERS: ATTEND Physician Assistant | DX: R19.7 Diarrhea, unspecified (principal); R10.13 Epigastric pain | CPT/HCPCS: 87045; 87046 ==

== ENCOUNTER → 2025-01-21 | Outpatient (CLI) | payer OTHER ==
--- NOTE | 2025-01-21 09:42 | US ---
EXAMINATION TYPE: US abdomen complete DATE OF EXAM: 01/21/2025 COMPARISON: NONE CLINICAL INDICATION: Male, 49 years old with history of R10.13 EPIGASTRIC PAIN; Epigastric pain x 1 m onth. TECHNIQUE: Grayscale and color Doppler imaging of the abdomen was performed. FINDINGS: EXAM MEASUREMENTS: Liver Length: 16.6 cm Gallbladder Wall: 0.23 cm CBD: 0.30 cm, color Doppler imaging was utilized to isolate the common bile duct for measurement. Spleen: 9.7 cm Right Kidney: 10.0 x 5.3 x 4.9 cm Left Kidney: 10.3 x 5.3 x 5.2 cm [employer]ER NOTES: *Exam is limited due to gas Pancreas: Limited visibility. *Tail was obscured. Liver: wnl, no dilated ducts, masses or cysts. Gallbladder: No abnormalities seen by ultrasound Evidence for sonographic Mcclelland's sign: No CBD: Appears wnl Spleen: Appears wnl Right Kidney: wnl, No hydronephrosis, calculi or masses seen Left Kidney: wnl, No hydronephrosis, calculi or masses seen Upper IVC: wnl Abd Aorta: *Some plaque seen in distal aorta. *Right BRANDAN measures upper limits at 1.5 cm in transver se which is within normal limits for a male. IMPRESSION: No evidence for acute process. [facility], , 01/21/2025 9:40 AM
== END | disposition home or self-care (01) ==
LOC: RADUSWWP 08:34
PROVIDERS: ATTEND Family Medicine
DX: R10.13 Epigastric pain (principal)
CPT/HCPCS: 76700

== ENCOUNTER 2025-01-22 07:39 | Emergency (ER) | payer OTHER ==
[2025-01-22] MEDS: KETOROLAC 15 MG/ML 1 ML VIAL IM STA (08:05)
--- NOTE | 2025-01-22 08:09 | ED ---
General Adult HPI - General Chief complaint: Fall Stated complaint: Fall-Right Hand Injury Time Seen by Provider: 01/22/25 07:46 Source: patient, RN notes reviewed Mode of arrival: ambulatory Limitations: no limitations - History of Present Illness Initial comments: 49-year-old male presenting complaints of right hand pain. Patient states that he accidentally tripped over one of his animals in his house falling onto his right hand. Patient denies hitting his head or loss of consciousness or other injuries at the time of the fall. Denies blood thinner use. States he has a history of a hairline fracture of his fifth metacarpal. No other acute complaints at this time - Related Data Home Medications Medication Instructions Recorded Confirmed diphenhydrAMINE HCL [Benadryl] 100 mg PO ONCE PRN 03/21/21 03/21/21 Previous Rx's Medication Instructions Recorded predniSONE 50 mg PO DAILY #5 tab 03/21/21 Acetaminophen-Codeine 300-30mg 1 tab PO Q4H PRN #20 tablet 02/24/22 [Tylenol w/codeine #3] Clindamycin [Cleocin] 150 mg PO Q6H #28 capsule 02/24/22 Allergies Allergy/AdvReac Type Severity Reaction Status Date / Time bee venom protein (honey bee) Allergy Swelling Verified 01/22/25 07:42 acetaminophen [From Vicodin] AdvReac Hallucinati Verified 01/22/25 07:42 ons hydrocodone [From Lortab] AdvReac Hallucinati Verified 01/22/25 07:42 ons Review of Systems ROS Statement: Those systems with pertinent positive or pertinent negative responses have been documented in the HPI. ROS Other: All systems not noted in ROS Statement are negative. Past Medical History Past Medical History: No Reported History History of Any Multi-Drug Resistant Organisms: None Reported Past Surgical History: No Surgical Hx Reported Past Psychological History: No Psychological Hx Reported Smoking Status: Current every day smoker Past Alcohol Use History: None Reported Past Drug Use History: Marijuana General Exam Limitations: no limitations General appearance: alert, in no apparent distress Neck exam: Present: normal inspection. Absent: tenderness, meningismus, lymphadenopathy Respiratory exam: Present: normal lung sounds bilaterally. Absent: respiratory distress, wheezes, rales, rhonchi, stridor Cardiovascular Exam: Present: regular rate, normal rhythm, normal heart sounds. Absent: systolic murmur, diastolic murmur, rubs, gallop, clicks GI/Abdominal exam: Present: soft, normal bowel sounds. Absent: distended, tenderness, guarding, rebound, rigid Left Hand Wrist exam: Present: tenderness, swelling. Absent: ecchymosis, erythema Neuro motor exam: Present: wrist extension intact, thumb opposition intact Neurosensory exam: Present: 2-point discrimination Vascular: Present: radial pulse (2+). Absent: vascular compromise Course Vital Signs 01/22/25 07:39 Temperature 97.8 F Pulse Rate 82 Respiratory 17 Rate Blood Pressure 126/81 O2 Sat by Pulse 99 Oximetry Procedures - Orthopedic Splinting/Casting Injury #1 Side: right Upper Extremity Injury Location: hand Upper Extremity Immobilizer: Shyam wrap, synthetic pre-padded splint Medical Decision Making - Medical Decision Making Was pt. sent in by a medical professional or institution (Dr. PA, [facility] TANNER, urgent care, hospital, or shelter...) When possible be specific @ -No Did you speak to anyone other than the patient for history (EMS, parent, family, police, friend...)? What history was obtained from this source @ -No Did you review nursing and triage notes (agree or disagree)? Why? @ -I reviewed and agree with nursing and triage notes Were old charts reviewed (outside hosp., previous admission, EMS record, old EKG, old radiological studies, urgent care reports/EKG's, shelter records)? Report findings @ -No old charts were reviewed Differential Diagnosis (chest pain, altered mental status, abdominal pain women, abdominal pain men, vaginal bleeding, weakness, fever, dyspnea, syncope, headache, dizziness, GI bleed, back pain, seizure, CVA, palpatations, mental health, musculoskeletal)? @ -Differential Musculoskeletal Muscular strain, contusion, ligament sprain, fracture, arthritis, septic arthritis, bursitis, cellulitis, muscle spasm, nerve compression, DVT, arterial occlusion, herpes zoster, electrolyte abnormality, tumor.... This is not meant to be in all inclusive list EKG interpreted by me (3pts min.). @ -none X-rays interpreted by me (1pt min.). @ -X-ray of the right hand reveals an acute fracture of the proximal fifth metacarpal CT interpreted by me (1pt min.). @ -None done U/S interpreted by me (1pt. min.). @ -None done What testing was considered but not performed or refused? (CT, X-rays, U/S, labs)? Why? @ -None What meds were considered but not given or refused? Why? @ -None Did you discuss the management of the patient with other professionals (professionals i.e. , PA, [facility]ANNER, lab, RT, psych nurse, geriatric social worker, plaster mold maker, teacher, driver license reviewing officer, director case)? Give summary @ -No Was smoking cessation discussed for >3mins.? @ -No Was critical care preformed (if so, how long)? @ -No Were there social determinants of health that impacted care today? How? (Homelessness, low income, unemployed, alcoholism, drug addiction, transportation, low edu. Level, literacy, decrease access to med. care, assisted, rehab)? @ -No Was there de-escalation of care discussed even if they declined (Discuss DNR or withdrawal of care, Hospice)? DNR status @ -No What co-morbidities impacted this encounter? (DM, HTN, Smoking, COPD, CAD, Cancer, CVA, ARF, Chemo, Hep., AIDS, mental health diagnosis, sleep apnea, morbid obesity)? @ -None Was patient admitted / discharged? Hospital course, mention meds given and route, prescriptions, significant lab abnormalities, going to OR and other pertinent info. @ -Discharge. 49-year-old male presenting with right hand pain. There is noted soft tissue swelling of the right lateral hand tenderness to palpation. There is no anatomical snuffbox tenderness. Radial pulses 2+. Patient right until the Toradol for pain relief. X-rays concerning for a fracture of the fifth metacarpal. Patient is placed in a radial gutter splint and is instructed to follow-up with PT specialist. Recommend to continue to rest, ice, elevate and use Tylenol/Motrin as needed for pain relief. case discussed with attending, Dr. Nunes Undiagnosed new problem with uncertain prognosis? @ -No Drug Therapy requiring intensive monitoring for toxicity (Heparin, Nitro, Insulin, Cardizem)? @ -No Were any procedures done? @ -Orthopedic splinting Diagnosis/symptom? @ -Metacarpal fracture Acute, or Chronic, or Acute on Chronic? @ -Acute Uncomplicated (without systemic symptoms) or Complicated (systemic symptoms)? @ -Uncomplicated Side effects of treatment? @ -No Exacerbation, Progression, or Severe Exacerbation? @ -No Poses a threat to life or bodily function? How? (Chest pain, [place], [place], pneumonia, PE, COPD, DKA, ARF, appy, cholecystitis, CVA, Diverticulitis, Homicidal, Suicidal, threat to staff... and all critical care pts) @ -No Disposition Clinical Impression: Metacarpal bone fracture Disposition: HOME SELF-CARE Condition: Good Instructions (If sedation given, give patient instructions): Hand Fracture (ED) Additional Instructions: Please return to the Emergency Department if symptoms worsen or any other concerns. Is patient prescribed a controlled substance at d/c from ED?: No Referrals: Charles Alvarez MD [Primary Care Provider] - 1-2 days Dat Winters MD [STAFF PHYSICIAN] - 1-2 days Time of Disposition: 09:07
--- NOTE | 2025-01-22 08:46 | XR ---
EXAMINATION TYPE: XR hand complete RT DATE OF EXAM: 01/22/2025 8:16 AM COMPARISON: 02/16/2011 CLINICAL INDICATION: Male, 49 years old with history of fall, lateral hand pain; PHH, pain TECHNIQUE: XR hand complete RT 3were obtained. FINDINGS: Remote healed fifth metacarpal distal fracture with superimposed acute fracture of the prox imal fifth metatarsal with volar angulation posterior displacement slightly.. Normal alignment of the visualized joints. There is soft tissue swelling. No significant degeneration. IMPRESSION: Acute fracture of the proximal fifth metacarpal. Remote fracture of the distal fifth metacarpal with bony fusion. [facility], , 01/22/2025 8:43 AM
[2025-01-22 09:26] VITALS: BP 124/76; PULSE 76; RESP 18; TEMP 98
== END 2025-01-22 09:26 | disposition home or self-care (01) ==
LOC: EC 07:39
DX: S62.306A Unspecified fracture of fifth metacarpal bone, right hand, initial encounter for closed fracture (principal); F17.200 Nicotine dependence, unspecified, uncomplicated; Z88.5 Allergy status to narcotic agent; Z91.030 Bee allergy status; W01.0XXA Fall on same level from slipping, tripping and stumbling without subsequent striking against object, initial encounter; Y92.009 Unspecified place in unspecified non-institutional (private) residence as the place of occurrence of the external cause
CPT/HCPCS: 73130; 29125; 99283; 96372; J1885